=== PATIENT | female | born 2000 | race African-American/Black ===

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

== ENCOUNTER 2019-03-15 19:53 | Observation (INO) | payer OTHER ==
[~2019-03-15] VITALS: Ht 165.1 cm; Wt 57.6 kg
[~2019-03-15 19:53] MED LIST: AMOX1TAB61 PO
[2019-03-15] MEDS ORDERED: ONDANSETRON PF 4 MG/2 ML VIAL. ONE (20:23)
[2019-03-15] MEDS ORDERED: IV NORMAL SALINE 1000ML BAG 1,000 ML IV ONE (20:30)
[2019-03-15] MEDS ORDERED: ONDANSETRON PF 4 MG/2 ML VIAL. IV ONE (20:30)
[2019-03-15 20:54] LABS: BASO % 0 % (0-3); EOS % 0 % (0-3); HEMATOCRIT 29.6 % (36.0-47.0); HEMOGLOBIN 9.7 g/dL (12.0-15.5); LYMPH # 0.7 x10^3/uL (1.0-4.8); LYMPH % 5 % (24-48); MEAN CORPUSCULAR HEMOGLOBIN 24 pg (25-35); MEAN CORPUSCULAR HGB CONC 33 g/dL (31-37); MEAN CORPUSCULAR VOLUME 74 fL (79-100); MONO # 0.5 x10^3/uL (0.0-1.1); MONO % 4 % (0-9); NEUT # 11.4 x10^3/uL (1.8-7.7); NEUT % 91 % (31-73); PLATELET COUNT 266 x10^3/uL (140-400); RED CELL DISTRIBUTION WIDTH 14.1 % (11.5-14.5); WHITE BLOOD COUNT 12.5 x10^3/uL (4.0-11.0)
[2019-03-15 21:08] LABS: CALCIUM 9.5 mg/dL (8.5-10.1); CREATININE 0.5 mg/dL (0.6-1.0); GFR 190.3; POTASSIUM 3.6 mmol/L (3.5-5.1)
[2019-03-15 21:12] LABS: % BANDS 10 % (0-9); % LYMPHS 6 % (24-48); % MONOS 1 % (0-10); % SEGS 83 % (35-66)
[2019-03-15 21:14] LABS: PLT ESTIMATE ADEQUATE (ADEQUATE)
[2019-03-15 21:15] LABS: HYPOCHROMIA SLIGHT; MICROCYTOSIS MOD; POLYCHROMASIA SLIGHT
[2019-03-15] MEDS ORDERED: METOCLOPRAMIDE HCL 10 MG/2 ML VIAL. IVP ONE (21:15)
[2019-03-15 21:20] LABS: ALBUMIN 3.1 g/dL (3.4-5.0); ALBUMIN/GLOBULIN RATIO 0.6 (1.0-1.7); MAGNESIUM 1.5 mg/dL (1.8-2.4); TOTAL BILIRUBIN 0.3 mg/dL (0.2-1.0)
--- NOTE | 2019-03-15 21:35 | RAD ---
Ultrasound greater than 14 weeks HISTORY: Lower abdominal pain and diarrhea Sonographic examination of the was performed by transabdominal technique and multiple static images were obtained. There is a single live intrauterine the heartbeat is confirmed at 137 beats per minute. There is a cephalic position. The maternal cervix appears normal and measures 5.5 cm in length. Visualization of structures is limited by the advanced gestational age. The spine appears normal. The cord insertion appears normal. The posterior fossa appears normal. The ventricles appear normal. The amniotic fluid volume appears normal. The LMP of 10/06/2018 corresponds with 22 week 6 day gestational age and estimated date of confinement July 13, 2019. Size by ultrasound is concordant. The estimated weight percentile 39 percent. Weight is 1 lb. 3 oz. +/- 3 ounces. The measurements as follows: BPD 5.6 cm 23 weeks 1 day Head circumference 20 cm 22 weeks 4 days Normal cervix 18.6 cm 23 weeks 3 days Femur length 3.8 cm 22 weeks 1 day IMPRESSION: Single live intrauterine at 22 weeks 6 days gestational age by LMP has appropriate size by ultrasound. No abnormality identified. Electronically signed by: Db Luther III, MD (03/15/2019 9:32 PM) [facility]
[2019-03-15] MEDS ORDERED: IV RINGERS,LACTATED 1000ML 1,000 ML IV ONE (21:45)
[2019-03-15] MEDS ORDERED: METOCLOPRAMIDE HCL 10 MG/2 ML VIAL. IVP PRN (21:45)
--- NOTE | 2019-03-15 21:59 | PHYS DOC ---
Past Medical History Past Medical History: No Pertinent History (RAHEL FINE APRN) Past Surgical History: No Surgical History (RAHEL FINE APRN) Alcohol Use: None Drug Use: None (RAHEL FINE APRN) Attending Signature I have participated in the care of this patient and I have reviewed and agree with all pertinent clinical information above including history, exam, and recommendations. (MIAH CORONA MD) Adult General Chief Complaint Chief Complaint: VOMITING IN HPI HPI Patient is a 18 year old AA female, accompanied by her family, who presents to the emergency department with complaints of nausea, vomiting, and diarrhea since 1700 this evening. Patient states that she is currently 23 weeks . Her last menstrual cycle was on October 23, 2018 and her estimated due date is July 13, 2019. She is 2, para 1. Her OB is Dr. Hood. She complains of lower abdominal pain that she rates a 10 out of 10 on the pain scale, no alleviating or exacerbating factors. She denies any abnormal vaginal discharge or vaginal bleeding. Patient states she has vomited at least 10 times and she has had diarrhea only once. She denies any blood in her diarrhea. (RAHEL FINE APRN) Review of Systems Review of Systems Constitutional: Denies fever or chills [] Eyes: Denies change in visual acuity, redness, or eye pain [] HENT: Denies nasal congestion or sore throat [] Respiratory: Denies cough or shortness of breath [] Cardiovascular: No additional information not addressed in HPI [] GI: See history of present illness : Denies dysuria or hematuria [] Musculoskeletal: Denies back pain or joint pain [] Integument: Denies rash or skin lesions [] Neurologic: Denies headache, focal weakness or sensory changes [] Complete systems were reviewed and found to be within normal limits, except as documented in this note. (RAHEL FINE APRN) Current Medications Current Medications Current Medications Medications (Trade) Dose Ordered Sig/Gautam Start Time Stop Time Status Last Admin Dose Admin Metoclopramide HCl (Reglan Vial) 10 mg 1X ONCE 03/15/19 21:15 03/15/19 21:16 DC 03/15/19 21:12 10 MG Ondansetron HCl (Zofran) 4 mg 1X ONCE 03/15/19 20:30 03/15/19 20:42 DC 03/15/19 20:39 4 MG Sodium Chloride 1,000 ml @ 1,000 mls/hr 1X ONCE 03/15/19 20:30 03/15/19 21:29 DC 03/15/19 20:40 1,000 MLS/HR (MAIH CORONA MD) Allergies Allergies Allergies Coded Allergies Type Severity Reaction Last Updated Verified No Known Drug Allergies 02/22/17 No (MIAH CORONA MD) Physical Exam Physical Exam Constitutional: Well developed, well nourished, no acute distress, non-toxic appearance. [] HENT: Normocephalic, atraumatic, bilateral external ears normal, oropharynx dry, no oral exudates, nose normal. [] Eyes: PERRLA, EOMI, conjunctiva normal, no discharge. [] Neck: Normal range of motion, no stridor. [] Cardiovascular:Heart rate regular rhythm, no murmur [] Lungs & Thorax: Bilateral breath sounds clear to auscultation [] Abdomen: Bowel sounds normal, soft, no tenderness, no masses, no pulsatile masses. [] Skin: Warm, dry, no erythema, no rash. [] Back: No tenderness, no CVA tenderness. [] Extremities: No cyanosis, ROM intact, no edema. [] Neurologic: Alert and oriented X 3, no focal deficits noted. [] Psychologic: Affect normal, judgement normal, mood normal. [] (RAHEL FINE APRN) Current Patient Data Vital Signs Vital Signs Date Time Temp Pulse Resp B/P (MAP) Pulse Ox O2 Delivery O2 Flow Rate FiO2 03/15/19 20:03 97.5 81 16 135/65 (88) 100 Room Air 97.5 (MIAH CORONA MD) Lab Values Laboratory Tests Test 03/15/19 20:32 White Blood Count 12.5 x10^3/uL (4.0-11.0) H Red Blood Count 4.00 x10^6/uL (3.50-5.40) Hemoglobin 9.7 g/dL (12.0-15.5) L Hematocrit 29.6 % (36.0-47.0) L Mean Corpuscular Volume 74 fL (79-100) L Mean Corpuscular Hemoglobin 24 pg (25-35) L Mean Corpuscular Hemoglobin Concent 33 g/dL (31-37) Red Cell Distribution Width 14.1 % (11.5-14.5) Platelet Count 266 x10^3/uL (140-400) Neutrophils (%) (Auto) 91 % (31-73) H Lymphocytes (%) (Auto) 5 % (24-48) L Monocytes (%) (Auto) 4 % (0-9) Eosinophils (%) (Auto) 0 % (0-3) Basophils (%) (Auto) 0 % (0-3) Neutrophils # (Auto) 11.4 x10^3/uL (1.8-7.7) H Lymphocytes # (Auto) 0.7 x10^3/uL (1.0-4.8) L Monocytes # (Auto) 0.5 x10^3/uL (0.0-1.1) Eosinophils # (Auto) 0.0 x10^3/uL (0.0-0.7) Basophils # (Auto) 0.0 x10^3/uL (0.0-0.2) Segmented Neutrophils % 83 % (35-66) H Band Neutrophils % 10 % (0-9) H Lymphocytes % 6 % (24-48) L Monocytes % 1 % (0-10) Platelet Estimate Adequate (ADEQUATE) Polychromasia Slight Hypochromasia Slight Microcytosis Mod Sodium Level 139 mmol/L (136-145) Potassium Level 3.6 mmol/L (3.5-5.1) Chloride Level 104 mmol/L (98-107) Carbon Dioxide Level 24 mmol/L (21-32) Anion Gap 11 (6-14) Blood Urea Nitrogen 7 mg/dL (7-20) Creatinine 0.5 mg/dL (0.6-1.0) L Estimated GFR (Cockcroft-Gault) 190.3 BUN/Creatinine Ratio 14 (6-20) Glucose Level 105 mg/dL (70-99) H Calcium Level 9.5 mg/dL (8.5-10.1) Magnesium Level 1.5 mg/dL (1.8-2.4) L Total Bilirubin 0.3 mg/dL (0.2-1.0) Aspartate Amino Transferase (AST) 16 U/L (15-37) Alanine Aminotransferase (ALT) 14 U/L (14-59) Alkaline Phosphatase 40 U/L (46-116) L Total Protein 8.0 g/dL (6.4-8.2) Albumin 3.1 g/dL (3.4-5.0) L Albumin/Globulin Ratio 0.6 (1.0-1.7) L Laboratory Tests 03/15/19 20:32 Laboratory Tests 03/15/19 20:32 (MIAH CORONA MD) EKG EKG [] (RAHEL FINE APRN) Radiology/Procedures Radiology/Procedures PROCEDURE: PREG MORE THAN OR EQ TO 14 WKS Ultrasound greater than 14 weeks HISTORY: Lower abdominal pain and diarrhea Sonographic examination of the was performed by transabdominal technique and multiple static images were obtained. There is a single live intrauterine the heartbeat is confirmed at 137 beats per minute. There is a cephalic position. The maternal cervix appears normal and measures 5.5 cm in length. Visualization of structures is limited by the advanced gestational age. The spine appears normal. The cord insertion appears normal. The posterior fossa appears normal. The ventricles appear normal. The amniotic fluid volume appears normal. The LMP of 10/06/2018 corresponds with 22 week 6 day gestational age and estimated date of confinement July 13, 2019. Size by ultrasound is concordant. The estimated weight percentile 39 percent. Weight is 1 lb. 3 oz. +/- 3 ounces. The measurements as follows: BPD 5.6 cm 23 weeks 1 day Head circumference 20 cm 22 weeks 4 days Normal cervix 18.6 cm 23 weeks 3 days Femur length 3.8 cm 22 weeks 1 day IMPRESSION: Single live intrauterine at 22 weeks 6 days gestational age by LMP has appropriate size by ultrasound. No abnormality identified. [] (RAHEL FINE APRN) Course & Med Decision Making Course & Med Decision Making Pertinent Labs and Imaging studies reviewed. (See chart for details) dx: Hyperemesis gravidarum Patient was given 1 L of normal saline, 4 mg Zofran, and 10 mg of Reglan in the emergency department. CBC: CBC is 12.5, hemoglobin 9.7, hematocrit 29.6, 83 segs, 10 bands; CMP: Glu cose 105, magnesium 1.5, otherwise unremarkable, UA pending Ultrasound revealed no acute findings. [address] Christianson who will admit the patient as an observation status for hyperemesis gravidarum. Will order 8 mg of Zofran IV every 8 hours scheduled, 10 mg of Reglan as needed every 8 hours for nausea, and lactated Ringer's at 175 ml/hr with regular diet per his instruction. [] (RAHEL FINE APRN) Dragon Disclaimer Dragon Disclaimer This electronic medical record was generated, in whole or in part, using a voice recognition dictation system. (RAHEL FINE APRN) Departure Departure Impression: Primary Impression: Hyperemesis gravidarum Disposition: ADMITTED INPATIENT Admitting Physician: ROLF alves) (RAHEL FINE APRN) Condition: STABLE Referrals: UNKNOWN PCP NAME (PCP) RAHEL FINE APRN Mar 15, 2019 21:58 MIAH CORONA MD Mar 16, 2019 02:59
[2019-03-15] MEDS: ONDANSETRON PF 4 MG/2 ML VIAL. IV SCH (22:00)
[2019-03-15 22:50] VITALS: BP 105/55
--- NOTE | 2019-03-15 22:50 | NUR ---
Patient admitted to room 303 from ER accompanied by ER nurse. VSS. Patient A&O, on RA and in no distress. No complaints of pain or N/V at this time. Call light is within reach. Will monitor.
[2019-03-15] MEDS ORDERED: DOCUSATE SODIUM 100 MG CAPSULE. PO PRN (23:45)
[2019-03-15] MEDS ORDERED: PREN1TAB58 PO (23:46)
[2019-03-16] MEDS: ONDANSETRON PF 4 MG/2 ML VIAL. IV SCH ×2 (06:07→13:30)
[2019-03-16 08:13] LABS: CALCIUM 8.5 mg/dL (8.5-10.1); CREATININE 0.4 mg/dL (0.6-1.0); GFR 246.2; POTASSIUM 3.4 mmol/L (3.5-5.1)
--- NOTE | 2019-03-16 08:35 | NUR ---
Offered flu vac refused
[2019-03-16 10:10] VITALS: BP 114/38
[2019-03-16 11:31] LABS: BILIRUBIN,URINE NEGATIVE (NEG); CLARITY,URINE CLEAR; COLOR,URINE YELLOW; NITRITE,URINE NEGATIVE (NEG); PH,URINE 6.5; PROTEIN,URINE NEGATIVE (NEG-TRACE)
[2019-03-16 11:38] LABS: BACTERIA,URINE MANY /HPF (0-FEW); SQUAMOUS EPITHELIAL CELL,UR MANY /LPF
[2019-03-16 11:39] LABS: RBC,URINE 0 /HPF (0-2)
--- NOTE | 2019-03-16 13:35 | PDOC1 ---
OB - History Hx of Present Care: Limited Care Ultrasounds: No ultrasounds Obstetrical Complications: Hyperemesis Medical Complications: None Past Family/Social History * Past Medical, Surgical, Family and Obstetric Histories reviewed from chart. Blood Type: Unknown Rubella: Unknown RPR/VDRL: Unknown GBS Status: Unknown HBsAG: Unknown OB - Chief Complaint & HPI Date of Admission: Date of Admission: Mar 15, 2019 at 21:30 Chief Complaint/History : 1 Para: 0 EGA: 23 Reason for admission: observation (Hyperemesis) Admission Nurse Assessment Rev: Yes OB - Admission Exam Physical Exam Vitals: VS - Last 72 Hours, by Label Date Time Temp Pulse Resp B/P (MAP) Pulse Ox O2 Delivery O2 Flow Rate FiO2 03/16/19 10:10 98.7 89 16 114/38 (63) 100 Room Air 98.7 03/16/19 08:29 Room Air 03/15/19 23:00 Room Air 03/15/19 22:50 98.1 93 16 105/55 (72) 99 Room Air 98.1 03/15/19 22:26 82 18 107/56 (73) 99 Room Air 03/15/19 21:42 82 18 112/57 (75) 100 Room Air 03/15/19 20:03 97.5 81 16 135/65 (88) 100 Room Air 97.5 HEENT: Other (dry mucous membranes) Heart: Regular Rate Lungs: Clear Abdomen: Gravid, Non tender, Soft Extremities: No tenderness or swelling Reflexes: Normal Cervical Dilatation: None Effacement: 0% Station: Ballotable Membranes: Intact Heart Rate: Normal Decelerations: No decelerations Contractions on Admission: None Text A: 23 wks IUP Hyperemesis Gravidarum P: Observation for IV hydration and antiemetics. D/c home when tolerating regular diet and IV fluids replenished. MARJ CASTILLO Jr, MD Mar 16, 2019 13:35
--- NOTE | 2019-03-16 13:36 | NUR ---
Saline lock dc'd
[2019-03-16] MEDS ORDERED: ONDA8TAB9 PO (13:38)
[2019-03-16] MEDS ORDERED: METO10TA81 PO (13:38)
--- NOTE | 2019-03-16 13:39 | DISCH ---
DISCHARGE INSTRUCTIONS Condition on Discharge Condition on Discharge: Stable Activity After Discharge Activity Instructions for Disc: Activity as tolerated Lifting Instructions after Dis: No heavy lifting Driving Instructions after Dis: Do not drive today Diet after Discharge Diet after Discharge: Regular Contacting the DRJer after DC Call your doctor for: Concerns you may have Follow-Up Follow up with: Dr. Hood as scheduled. MARJ CASTILLO Jr, MD Mar 16, 2019 13:39
--- NOTE | 2019-03-16 14:35 | NUR ---
Discharged to home ambulatory, information given on hyperemesis gravidarum, belongings returned to pt
== END 2019-03-16 14:37 | disposition home or self-care (01) ==
LOC: ER 19:53 → 3 NORTH 21:30
PROVIDERS: ADMIT Obstetrics & Gynecology; ATTEND Obstetrics & Gynecology
DX: O21.0 Mild hyperemesis gravidarum (principal); O26.892 Other specified pregnancy related conditions, second trimester; R19.7 Diarrhea, unspecified; Z3A.23 23 weeks gestation of pregnancy
CPT/HCPCS: 36415; 76805; 80048; 80053; 81001; 83735; 85007; 85025; 87086; 96361; 96374; 96375; 96376; 99284; G0378; J2405; J2765; J7030; J7120; G0379

== ENCOUNTER 2020-06-20 07:08 | Observation (INO) | payer OTHER ==
[2020-06-20] VITALS (13 sets, daily range): BP systolic 91–111; BP diastolic 32–57
[~2020-06-20] VITALS: Ht 160 cm; Wt 61.0 kg
[~2020-06-20 07:08] MED LIST changes: +METO10TA81 PO; +ONDA8TAB9 PO; +PREN1TAB58 PO
--- NOTE | 2020-06-20 07:20 | ED.ADGEN ---
Past Medical History Past Medical History: No Pertinent History Past Surgical History: No Surgical History Smoking Status: Never Smoker Alcohol Use: None Drug Use: None General Adult EDM: Chief Complaint: VAGINAL BLEEDING HPI: HPI: Patient is a 19-year-old female who arrives via EMS after experiencing what she believes is a miscarriage. Patient reports that she was 4 months h owever she has no regular obstetric management. The patient states she began experiencing cramping yesterday evening along with bleeding. Paramedics report they observed what appeared to be parts upon arrival. The patient reports she has continued cramping however she denies any further symptoms. She is awake, alert and nontoxic-appearing. Review of Systems: Review of Systems: Constitutional: Denies fever or chills. [] Eyes: Denies change in visual acuity. [] HENT: Denies nasal congestion or sore throat. [] Respiratory: Denies cough or shortness of breath. [] Cardiovascular: Denies chest pain or edema. [] GI: Denies abdominal pain, nausea, vomiting, bloody stools or diarrhea. [] : , vaginal bleeding. Denies dysuria. [] Musculoskeletal: Denies back pain or joint pain. [] Integument: Denies rash. [] Neurologic: Denies headache, focal weakness or sensory changes. [] Endocrine: Denies polyuria or polydipsia. [] Lymphatic: Denies swollen glands. [] Psychiatric: Denies depression or anxiety. [] Family History: Family History: Noncontributory Current Medications: Current Medications Medications (Trade) Dose Ordered Sig/Gautam Start Time Stop Time Status Last Admin Dose Admin Morphine Sulfate (Morphine Sulfate) 4 mg 1X ONCE 06/20/20 09:15 06/20/20 09:21 DC Ondansetron HCl (Zofran) 4 mg 1X ONCE 06/20/20 08:00 06/20/20 08:01 DC 06/20/20 07:59 4 MG Sodium Chloride 1,000 ml @ 1,000 mls/hr 1X ONCE 06/20/20 08:45 06/20/20 09:44 06/20/20 08:40 1,000 MLS/HR Allergies: Allergies: Allergies Coded Allergies Type Severity Reaction Last Updated Verified No Known Drug Allergies 02/22/17 No Physical Exam: PE: Constitutional: Well developed, well nourished, no acute distress, non-toxic appearance. [] HENT: Normocephalic, atraumatic, bilateral external ears normal, oropharynx moist, no oral exudates, nose normal. [] Eyes: PERRLA, EOMI, conjunctiva normal, no discharge. [] Neck: Normal range of motion, no tenderness, supple, no stridor. [] Cardiovascular:Heart rate regular rhythm, no murmur [] Lungs & Thorax: Bilateral breath sounds clear to auscultation [] Abdomen: Mild abdominal distention consistent with early . Bowel sounds normal, soft, no tenderness, no masses, no pulsatile masses. [] Skin: Warm, dry, no erythema, no rash. [] Back: No tenderness, no CVA tenderness. [] Extremities: No tenderness, no cyanosis, no clubbing, ROM intact, no edema. [] Neurologic: Alert and oriented X 3, normal motor function, normal sensory function, no focal deficits noted. [] Psychologic: Affect normal, judgement normal, mood normal. [] Current Patient Data: Labs: Laboratory Tests Test 06/20/20 07:18 White Blood Count 7.9 x10^3/uL (4.0-11.0) Red Blood Count 3.84 x10^6/uL (3.50-5.40) Hemoglobin 11.4 g/dL (12.0-15.5) L Hematocrit 32.7 % (36.0-47.0) L Mean Corpuscular Volume 85 fL (79-100) Mean Corpuscular Hemoglobin 30 pg (25-35) Mean Corpuscular Hemoglobin Concent 35 g/dL (31-37) Red Cell Distribution Width 13.5 % (11.5-14.5) Platelet Count 219 x10^3/uL (140-400) Neutrophils (%) (Auto) 71 % (31-73) Lymphocytes (%) (Auto) 22 % (24-48) L Monocytes (%) (Auto) 6 % (0-9) Eosinophils (%) (Auto) 1 % (0-3) Basophils (%) (Auto) 0 % (0-3) Neutrophils # (Auto) 5.6 x10^3/uL (1.8-7.7) Lymphocytes # (Auto) 1.8 x10^3/uL (1.0-4.8) Monocytes # (Auto) 0.4 x10^3/uL (0.0-1.1) Eosinophils # (Auto) 0.0 x10^3/uL (0.0-0.7) Basophils # (Auto) 0.0 x10^3/uL (0.0-0.2) Sodium Level 134 mmol/L (136-145) L Potassium Level 3.4 mmol/L (3.5-5.1) L Chloride Level 102 mmol/L (98-107) Carbon Dioxide Level 24 mmol/L (21-32) Anion Gap 8 (6-14) Blood Urea Nitrogen 10 mg/dL (7-20) Creatinine 0.6 mg/dL (0.6-1.0) Estimated GFR (Cockcroft-Gault) 152.7 BUN/Creatinine Ratio 17 (6-20) Glucose Level 109 mg/dL (70-99) H Calcium Level 8.7 mg/dL (8.5-10.1) Total Bilirubin 0.2 mg/dL (0.2-1.0) Aspartate Amino Transferase (AST) 12 U/L (15-37) L Alanine Aminotransferase (ALT) 15 U/L (14-59) Alkaline Phosphatase 26 U/L (46-116) L Total Protein 6.4 g/dL (6.4-8.2) Albumin 2.8 g/dL (3.4-5.0) L Albumin/Globulin Ratio 0.8 (1.0-1.7) L Laboratory Tests 06/20/20 07:18 Laboratory Tests 06/20/20 07:18 Vital Signs: Vital Signs Date Time Temp Pulse Resp B/P (MAP) Pulse Ox O2 Delivery O2 Flow Rate FiO2 06/20/20 08:43 63 16 93/52 (66) 100 Room Air 06/20/20 07:08 97.1 97.1 EKG: EKG: [] Heart Score: Risk Factors: Risk Factors: DM, Current or recent (<one month) smoker, HTN, HLP, family history of CAD, obesity. Risk Scores: Score 0 - 3: 2.5% MACE over next 6 weeks - Discharge Home Score 4 - 6: 20.3% MACE over next 6 weeks - Admit for Clinical Observation Score 7 - 10: 72.7% MACE over next 6 weeks - Early Invasive Strategies Radiology/Procedures: Radiology/Procedures: [] Impression: [facility] [address] [place] [address] IMAGING REPORT Signed PATIENT: ADRIENNE COREAS ACCOUNT: [id number] : 2000 LOCATION: ER AGE: 19 SEX: F EXAM STATUS: REG ER ORD. PHYSICIAN: SHAKA HAYS DO REASON: /miscarriage PROCEDURE: PREG MORE THAN OR EQ TO 14 WKS EXAM: Ultrasound OB Greater than 14 weeks INDICATION: Reason: /miscarriage / Spl. Instructions: / History: TECHNIQUE: Real-time obstetrical ultrasound was performed with permanent freeze- frame documentation. COMPARISON: None. FINDINGS: The uterus shows no evidence of an intrauterine gestation. There is thickening and heterogeneity to the endometrial lining and there is tissue in the cervical canal IMPRESSION: 1. Thickened, heterogeneous endometrium with no intrauterine gestation identified. In the setting of a recent , these are findings of concern for a spontaneous in progress. 2. Recommend clinical correlation including with serial beta-hCG measurements and continued follow-up to exclude molar . Electronically signed by: Triston Gonzalez MD (06/20/2020 8:08 AM) [id number] DICTATED and SIGNED BY: TRISTON GONZALEZ MD DATE: 06/20/20 [id number] 0 Course & Med Decision Making: Course & Med Decision Making Pertinent Labs and Imaging studies reviewed. (See chart for details) The patient's blood pressure has improved since her arrival. Nonetheless she continues to have pain despite IV narcotics. Given her recent miscarriage as well as what appears to be intractable pain she has been admitted to Dr. Wayne for further evaluation and treatment. The patient understands and has agreed to stay. She is nontoxic-appearing and stable for transport to the floor. [] Dragon Disclaimer: Dragon Disclaimer: This electronic medical record was generated, in whole or in part, using a voice recognition dictation system. Departure Departure Impression: Primary Impression: Complete miscarriage Additional Impression: Intractable pain Disposition: ADMITTED INPT THIS HOSP Condition: STABLE Referrals: UNKNOWN PCP NAME (PCP) ABEL WAYNE MD Problem Qualifiers SHAKA HAYS DO Jun 20, 2020 07:20
[2020-06-20] MEDS ORDERED: IV NORMAL SALINE 1000ML BAG 1,000 ML IV SCH (07:30)
[2020-06-20 07:47] LABS: BASO % 0 % (0-3); EOS % 1 % (0-3); HEMATOCRIT 32.7 % (36.0-47.0); HEMOGLOBIN 11.4 g/dL (12.0-15.5); LYMPH # 1.8 x10^3/uL (1.0-4.8); LYMPH % 22 % (24-48); MEAN CORPUSCULAR HEMOGLOBIN 30 pg (25-35); MEAN CORPUSCULAR HGB CONC 35 g/dL (31-37); MEAN CORPUSCULAR VOLUME 85 fL (79-100); MONO # 0.4 x10^3/uL (0.0-1.1); MONO % 6 % (0-9); NEUT # 5.6 x10^3/uL (1.8-7.7); NEUT % 71 % (31-73); PLATELET COUNT 219 x10^3/uL (140-400); RED BLOOD COUNT 3.84 x10^6/uL (3.50-5.40); RED CELL DISTRIBUTION WIDTH 13.5 % (11.5-14.5); WHITE BLOOD COUNT 7.9 x10^3/uL (4.0-11.0)
[2020-06-20 07:51] LABS: CALCIUM 8.7 mg/dL (8.5-10.1); CREATININE 0.6 mg/dL (0.6-1.0); GFR 152.7; POTASSIUM 3.4 mmol/L (3.5-5.1)
[2020-06-20 07:57] LABS: ALBUMIN 2.8 g/dL (3.4-5.0); ALBUMIN/GLOBULIN RATIO 0.8 (1.0-1.7); TOTAL BILIRUBIN 0.2 mg/dL (0.2-1.0); TOTAL PROTEIN 6.4 g/dL (6.4-8.2)
[2020-06-20] MEDS ORDERED: MORPHINE SULFATE 4 MG/ML VIAL. IV ONE ×3 (08:00→09:15)
[2020-06-20] MEDS ORDERED: ONDANSETRON PF 4 MG/2 ML VIAL. IVP ONE ×2 (08:00→10:45)
--- NOTE | 2020-06-20 08:11 | RAD ---
EXAM: Ultrasound OB Greater than 14 weeks INDICATION: Reason: /miscarriage / Spl. Instructions: / History: TECHNIQUE: Real-time obstetrical ultrasound was performed with permanent freeze-frame documentation. COMPARISON: None. FINDINGS: The uterus shows no evidence of an intrauterine gestation. There is thickening and heterogeneity to the endometrial lining and there is tissue in the cervical c anal IMPRESSION: 1. Thickened, heterogeneous endometrium with no intrauterine gestation identified. In the setting of a recent , these are findings of concern for a spontaneous in progress. 2. Recommend clinical correlation including with serial beta-hCG measurements and continued follow-up to exclude molar . Electronically signed by: Mahendra Gonzalez MD (06/20/2020 8:08 AM) [id number]
[2020-06-20] MEDS ORDERED: IV NORMAL SALINE 1000ML BAG 1,000 ML IV ONE ×2 (08:45→10:15)
[2020-06-20] MEDS ORDERED: DEXAMETHASONE SOD PHOS 4 MG/ML VIAL ONE (10:55)
[2020-06-20] MEDS ORDERED: LIDOCAINE 2% PF 5 ML VIAL. ONE (10:55)
[2020-06-20] MEDS ORDERED: PROPOFOL 10 MG/ML (20ML) VIAL. IV ONE (10:55)
[2020-06-20] MEDS ORDERED: ONDANSETRON PF 4 MG/2 ML VIAL. ONE (10:56)
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
[2020-06-20] MEDS ORDERED: LIDOCAINE 1% PF 2 ML VIAL. ID PRN (11:00)
[2020-06-20] MEDS ORDERED: HYDROmorphone 2 MG/ML VIAL IV PRN (11:00)
[2020-06-20] MEDS ORDERED: ONDANSETRON PF 4 MG/2 ML VIAL. IV PRN (11:00)
[2020-06-20] MEDS ORDERED: IV RINGERS,LACTATED 1000ML 1,000 ML IV SCH (11:00)
[2020-06-20] MEDS ORDERED: PROCHLORPERAZINE 10 MG/2 ML VIAL. IV PRN (11:00)
[2020-06-20] MEDS ORDERED: fentaNYL PF VIAL 100 MCG/2 ML VIAL IV PRN ×2 (11:00)
[2020-06-20] MEDS ORDERED: MORPHINE SULFATE 2 MG/ML VIAL. IV PRN (11:00)
[2020-06-20] MEDS ORDERED: DOXYCYCLINE HYCLATE 100 MG TABLET PO ONE (11:45)
[2020-06-20] MEDS ORDERED: SEVOFLURANE 31 TO 60 MINUTES. IH ONE (12:28)
[2020-06-20] MEDS ORDERED: OXYC1TAB15 PO (12:28)
[2020-06-20] MEDS ORDERED: IBUP-1060 PO (12:28)
[2020-06-20] MEDS ORDERED: ONDA4TAB7 PO (12:28)
[2020-06-20 12:52] LABS: HEMATOCRIT 24.7 % (36.0-47.0); HEMOGLOBIN 8.2 g/dL (12.0-15.5); RED BLOOD COUNT 2.85 x10^6/uL (3.50-5.40); RED CELL DISTRIBUTION WIDTH 13.2 % (11.5-14.5); WHITE BLOOD COUNT 12.8 x10^3/uL (4.0-11.0)
[2020-06-20] MEDS ORDERED: oxyCODONE/APAP 5/325 1 TAB TABLET PO ONE (13:45)
[2020-06-20] MEDS ORDERED: IBUPROFEN 400 MG TABLET. PO ONE (13:45)
--- NOTE | 2020-06-20 15:30 | NUR ---
Pt admitted to room 339 per bed from PACU S/P D&C. Pt drowsy but arousable. Pt denies any pain and scant amount of blood noted on pad. Frequent VS started, duong light within reach. Instructed pt not to get up without calling for help. Pt verbalized understanding.
--- NOTE | 2020-06-20 17:19 | PDOC4 ---
OPERATIVE NOTE: PreOp Dx: 1.) Retained POC - s/p 16wk , 2.) VB 3.) Anemia PostOp Dx: same Procedure: Suction D&C Surgeon: Kelly Cm Anesthesia: LMA EBL: 800 cc Fluids: 600 cc UOP: 75 cc Specimen: POC Complications: None ABEL CM MD Jun 20, 2020 17:19
--- NOTE | 2020-06-20 18:36 | OP ---
DATE OF SURGERY: 06/20/2020 PREOPERATIVE DIAGNOSES: 1. Retained products of conception status post 16-week . 2. Vaginal bleeding. 3. Anemia. POSTOPERATIVE DIAGNOSES: 1. Retained products of conception Status post 16-week . 2. Vaginal bleeding. 3. Anemia. PROCEDURE: Suction dilation and curettage. SURGEON: Antonio Cm MD ANESTHESIA: LMA. ESTIMATED BLOOD LOSS: 800 mL. FLUIDS: 600 mL. URINE OUTPUT: 75 mL. SPECIMENS: Retained products of conception. COMPLICATIONS: None. INDICATIONS: The patient is a 19-year-old 3, para 2-0-0-2, who presented to the ER with vaginal bleeding. The patient stated that late last night around 11 she began bleeding and cramping from 5 a.m., the patient passed the baby. The patient also stated that she only had 1 visit and was unsure of her EDC. Based on LMP sometime in February. The patient would have been roughly 16 weeks per the ER report. The patient came in with what appeared to be baby, making it more likely that she had a miscarriage that was closer to 20 weeks than 8 weeks. The patient underwent an ultrasound in the ER, revealing a completed AB. The patient was going to be discharged, but began to have increased pain and bleeding so I was consulted. When the patient was examined, the patient had significant amount of blood in her vaginal vault that could not be swept out with the Q-tip as well as what appeared to be membranes. Due to the patient's continued bleeding, the patient was brought to the operating room for suction D and C. DESCRIPTION OF PROCEDURE: The patient was taken to the operating room where LMA was placed without difficulty. The patient was prepped and draped in a normal sterile fashion. Speculum was placed to visualize the cervix. At that time, there was a large amount of blood in the vault. This was swept out. At the same time, there were membranes that were able to be seen. This was then grabbed with a ring forceps and delivered. This was a significant amount of membranes. At that point, this was sent to pathology. The cervix was sufficiently dilated, so a single tooth tenaculum was then placed on the anterior lip of the cervix. A 13 mm suction curette was then placed. Suction curettage was then advanced to the uterine fundus and suction was activated. Curette was rotated to clear all products of conception. There was still significant amount of products of conception with 3 passes. After that was completed, minimal blood was returned with the suction curette. At that point, sharp curettage was performed with gritty texture felt in all 4 quadrants. The suction curette was used one more time with minimal return. At that point, minimal bleeding was noted. The single tooth tenaculum was then removed with minimal bleeding at the tenaculum site. Good hemostasis was noted. At that point, the patient was taken to the recovery room in stable condition. A 200 mg of doxycycline were unable to be given preoperatively, so it was given in the recovery room. ANTONIO CM MD DR: JOSÉ/loren JOB#: [id number] / [id number] VENUS
[2020-06-20] MEDS ORDERED: ACETAMINOPHEN 325 MG TABLET. PO PRN (19:15)
[2020-06-20] MEDS ORDERED: FERROUS SULFATE 325 MG TABLET. PO SCH (21:00)
[2020-06-20] MEDS ORDERED: FERROUS SULFATE ORAL 300 MG/5 ML SOLUTION. PO SCH (21:00)
[2020-06-21 01:10] VITALS: BP 98/43
[2020-06-21 04:55] VITALS: BP 91/30
[2020-06-21 08:21] LABS: BASO % 0 % (0-3); EOS % 0 % (0-3); LYMPH # 0.7 x10^3/uL (1.0-4.8); LYMPH % 6 % (24-48); MEAN CORPUSCULAR VOLUME 86 fL (79-100); MONO # 0.2 x10^3/uL (0.0-1.1); MONO % 1 % (0-9); NEUT # 11.3 x10^3/uL (1.8-7.7); NEUT % 92 % (31-73)
[2020-06-21 08:30] VITALS: BP 90/33
[2020-06-21 08:30] LABS: HEMATOCRIT 18.8 % (36.0-47.0); HEMOGLOBIN 6.4 g/dL (12.0-15.5); MEAN CORPUSCULAR HEMOGLOBIN 29 pg (25-35); MEAN CORPUSCULAR HGB CONC 34 g/dL (31-37); PLATELET COUNT 158 x10^3/uL (140-400); RED CELL DISTRIBUTION WIDTH 13.5 % (11.5-14.5)
[2020-06-21] MEDS ORDERED: FERR325T14 PO (09:11)
[2020-06-21 09:25] LABS: RED BLOOD COUNT 2.19 x10^6/uL (3.50-5.40); RED CELL DISTRIBUTION WIDTH 13.8 % (11.5-14.5); WHITE BLOOD COUNT 9.9 x10^3/uL (4.0-11.0)
[2020-06-21 09:30] LABS: HEMATOCRIT 18.6 % (36.0-47.0); HEMOGLOBIN 6.6 g/dL (12.0-15.5)
[2020-06-21] MEDS ORDERED: medroxyPROGESTERone IM 150 MG/ML VIAL. IM ONE (09:30)
--- NOTE | 2020-06-21 09:46 | PDOC ---
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 Lamberto PO. Voiding. Minimal VB. Ambulating. Objective: Vital Signs: Vital Signs Date Time Temp Pulse Resp B/P (MAP) Pulse Ox O2 Delivery O2 Flow Rate FiO2 06/20/20 07:08 97.1 66 28 161/128 (139) 99 Room Air 97.1 06/20/20 12:29 6 Vital Signs Date Time Temp Pulse Resp B/P (MAP) Pulse Ox O2 Delivery O2 Flow Rate FiO2 06/21/20 08:30 97.2 89 16 90/33 (52) 98 Room Air 97.2 06/20/20 15:30 Labs: Laboratory Tests Test 06/20/20 10:38 06/20/20 12:47 06/20/20 18:00 06/21/20 08:35 SARS-CoV-2 Antigen (Rapid) Negative (NEGATIVE) White Blood Count 12.8 x10^3/uL (4.0-11.0) H 12.0 x10^3/uL (4.0-11.0) H 9.9 x10^3/uL (4.0-11.0) Red Blood Count 2.85 x10^6/uL (3.50-5.40) L 2.20 x10^6/uL (3.50-5.40) L 2.19 x10^6/uL (3.50-5.40) L Hemoglobin 8.2 g/dL (12.0-15.5) L 6.4 g/dL (12.0-15.5) *L 6.6 g/dL (12.0-15.5) *L Hematocrit 24.7 % (36.0-47.0) L 18.8 % (36.0-47.0) *L 18.6 % (36.0-47.0) *L Mean Corpuscular Volume 87 fL (79-100) 86 fL (79-100) 85 fL (79-100) Mean Corpuscular Hemoglobin 29 pg (25-35) 29 pg (25-35) 30 pg (25-35) Mean Corpuscular Hemoglobin Concent 33 g/dL (31-37) 34 g/dL (31-37) 35 g/dL (31-37) Red Cell Distribution Width 13.2 % (11.5-14.5) 13.5 % (11.5-14.5) 13.8 % (11.5-14.5) Platelet Count 174 x10^3/uL (140-400) 158 x10^3/uL (140-400) 141 x10^3/uL (140-400) Neutrophils (%) (Auto) 92 % (31-73) H Lymphocytes (%) (Auto) 6 % (24-48) L Monocytes (%) (Auto) 1 % (0-9) Eosinophils (%) (Auto) 0 % (0-3) Basophils (%) (Auto) 0 % (0-3) Neutrophils # (Auto) 11.3 x10^3/uL (1.8-7.7) H Lymphocytes # (Auto) 0.7 x10^3/uL (1.0-4.8) L Monocytes # (Auto) 0.2 x10^3/uL (0.0-1.1) Eosinophils # (Auto) 0.0 x10^3/uL (0.0-0.7) Basophils # (Auto) 0.0 x10^3/uL (0.0-0.2) Laboratory Tests 06/20/20 12:47 06/20/20 18:00 06/21/20 08:35 Laboratory Tests 06/21/20 08:35 Physical Exam: GENERAL: No apparent distress. Alert and oriented. HEENT: Head normocephalic, atraumatic. NECK: Supple LUNGS: Clear to auscultation. HEART: RRR, S1, S2 present, pulses intact ABDOMEN: Soft, positive bowel sounds. EXTREMITIES: No cyanosis or edema. NEUROLOGIC: Normal speech, normal tone PSYCHIATRIC: Normal affect, normal mood. SKIN: No ulceration. Assessment & Plan: A/P 19y POD #1 s/p suction D&C 1.) PO after surgery the pt was feeling faint, repeat Hgb was found to be 6.4, pt admitted overnight for transfusion 2.) Anemia Hgb 11.4 -> 8.2 -> 6.4 ->2U pRBC -> 6.6 (asx) 3.) Contraception Depo Provera given 4.) D/c home with f/u in a wk ABEL CM MD Jun 21, 2020 09:46
[2020-06-21 09:50] VITALS: BP 92/47
--- NOTE | 2020-06-21 11:19 | DS ---
DATE OF DISCHARGE: 06/21/2020 ADMISSION DIAGNOSES: 1. Status post 16-week delivery. 2. Vaginal bleeding. 3. Retained products of conception. 4. Anemia. DISCHARGE DIAGNOSES: 1. Status post 16-week delivery. 2. Vaginal bleeding. 3. Retained products of conception. 4. Anemia. PROCEDURE: Suction, dilation and curettage. BRIEF HOSPITAL COURSE: The patient is a 19-year-old 3, para 2-0-0-2 who presented to the ER after a 16-week delivery. The patient presented to the ER with bleeding and abdominal pain. The patient states that her cramping and bleeding began around 11:00 p.m. the previous night and by 5:00 a.m., the patient passed the baby. The patient had had only [address] Hood. She was unsure about her EDC, although she had an ultrasound at that visit. The patient was also unsure about her LMP, thinking that it was sometime in February. Based on the information given, she roughly would have been 16 weeks. When the patient presented to the ER, her bleeding had slowed down. The patient underwent an ultrasound, which revealed a thickened heterogeneous endometrium with no intrauterine gestation identified, which was consistent with his spontaneous . After some time, the patient had increased bleeding and pain in the ER, so I was consulted. On evaluation with the patient, she was revealed to have significant amount of blood in her vault as well as membranes. A discussion was held with the patient for the necessity of dilation and curettage. The patient underwent said procedure. During the procedure, it was noted that there was a significant amount of blood and membranes in her vault and still a significant amount in her uterus. The original plan was for the patient to go home after the D and C, but the patient was symptomatic from anemia, so a hemoglobin was repeated in the recovery room, which returned to 8.2. With the patient still with symptoms of dizziness, she was admitted overnight and a CBC was repeated, which returned at 6.4. The patient was transfused 1 unit of packed red blood cells and the following morning, her hemoglobin was relatively the same at 6.6 but the patient remained without any signs or symptoms of anemia, so the patient was okayed to be discharged with reassurance that she would follow up in a week. The patient desired Depo- Provera for contraception, she was given an injection postop day #1. DISCHARGE INSTRUCTIONS: The patient was told not to lift anything greater than 20 pounds, have pelvic rest for 6 weeks. CALL IF: The patient was to call if she had fevers, chills, nausea, vomiting, any signs or symptoms of anemia or any additional questions or concerns. FOLLOWUP APPOINTMENT: The patient is to follow up in 1 week's time in my office. DISCHARGE MEDICATIONS: The patient was given a prescription for Percocet 5, 5 pills; Motrin 800 mg, 30 pills; Colace 100 mg, 30 pills; and ferrous sulfate 325 mg, 30 pills. ABEL CM MD DR: JOSÉ/nts JOB#: [id number] / [id number] MTDDella
[2020-06-21 12:15] LABS: BILIRUBIN,URINE NEGATIVE (NEG); CLARITY,URINE CLEAR; COLOR,URINE YELLOW; NITRITE,URINE NEGATIVE (NEG); PH,URINE 6.5 (<5.0-8.0); PROTEIN,URINE NEGATIVE (NEG-TRACE)
[2020-06-21 12:42] LABS: BACTERIA,URINE 0 /HPF (0-FEW)
== END 2020-06-21 12:15 | disposition home or self-care (01) ==
LOC: ER 07:08 → 3 NORTH 09:20
PROVIDERS: ADMIT Obstetrics & Gynecology; ATTEND Obstetrics & Gynecology
DX: O03.4 Incomplete spontaneous abortion without complication (principal); Z20.828 Contact with and (suspected) exposure to other viral communicable diseases; O99.02 Anemia complicating childbirth; D64.9 Anemia, unspecified; Z3A.16 16 weeks gestation of pregnancy; Z79.899 Other long term (current) drug therapy
CPT/HCPCS: 36415; 36430; 59812; 76805; 80053; 81001; 85025; 85027; 86850; 86900; 86901; 86920; 87086; 87426; 96361; 96372; 96374; 96375; 96376; 99284; C1713; G0378; J0780; J1050; J1100; J2270; J2405; J2704; J7030; J7120; P9016; U0003; 88300; 88305; G0379